=== PATIENT | male | born 1960 | race Two or more races ===

== ENCOUNTER 2022-08-03 07:06 | Day surgery (SDC) | payer MEDICAID ==
[~2022-08-03] VITALS: Ht 182.9 cm; Wt 83.9 kg
[2022-08-03] VITALS (7 sets, daily range): BP systolic 107–129; BP diastolic 72–83
[~2022-08-03 07:06] MED LIST: AMIO200T33 PO; APIX5TAB PO; ATOR10TA52 PO; FURO40TA4 PO
[2022-08-03] MEDS ORDERED: HEPARIN IN NS 1000Units/500mL 0 ML ONE (07:37)
[2022-08-03] MEDS ORDERED: LIDOCAINE 2%HCL (LOCAL ANESTH.) INJ 20ML MDV ONE (07:37)
[2022-08-03] MEDS ORDERED: IODIXANOL 320MG/ML 100ML BTL IV ONE (07:37)
[2022-08-03] MEDS ORDERED: HEPARIN SODIUM (PORCINE) 5000 UNITS/ML 1ML VIAL ONE (07:51)
[2022-08-03] MEDS ORDERED: VERAPAMIL 2.5MG/ML INJ 2ML VIAL IV ONE (07:51)
[2022-08-03] MEDS ORDERED: ANGIOMAX 250 MG VIAL IV ONE (07:51)
[2022-08-03] MEDS ORDERED: SODIUM CHL 0.9% 0 ML ONE (07:52)
[2022-08-03] MEDS ORDERED: MIDAZOLAM HCL 2MG/2ML 2ml VIAL (1mg/ml) ONE (07:52)
[2022-08-03] MEDS ORDERED: fentaNYL CITRATE 100 MCG/2 ML VL ONE (07:52)
== END 2022-08-03 10:28 | disposition home or self-care (01) ==
LOC: CATH 07:06
PROVIDERS: ATTEND Internal Medicine Cardiovascular Disease
DX: R06.02 Shortness of breath (principal); R00.2 Palpitations; I48.0 Paroxysmal atrial fibrillation; E78.5 Hyperlipidemia, unspecified; Z87.891 Personal history of nicotine dependence
CPT/HCPCS: 76937; 93458; C1725; C1894; J1644; J2250; J3010; J7030; Q9967; 99152